=== PATIENT | female | born 1990 | race Caucasian/White ===

== ENCOUNTER 2016-05-23 18:09 | Emergency (ER) | payer OTHER ==
[~2016-05-23] VITALS: Ht 180.3 cm; Wt 143.6 kg
[2016-05-23 18:11] VITALS: BP 140/81; PULSE 89; RESP 17; TEMP 98.5; O2SAT 97
[2016-05-23] MEDS ORDERED: METF1000 PO (18:29)
[2016-05-23] MEDS ORDERED: ALBUAER3 INH (18:29)
[2016-05-23] MEDS ORDERED: LIDOCAINE VISCOUS 2% SOLN 15 ML UDC PO ONE (18:30)
[2016-05-23] MEDS ORDERED: ALUMINUM/MAGNESIUM/SIMETH 30 ML CUP PO ONE (18:30)
--- NOTE | 2016-05-23 18:32 | PD ---
HPI Chief Complaint: Abdominal Pain Time Seen by Provider: 18:25 Travel History International Travel<30 days: No Contact w/Intl Traveler<30days: No Traveled to known affect area: No History of Present Illness HPI The patient was seen and examined in the presence of the nurse. This patient complains of some epigastric area burning and irritation. She is not having any chest pain. She's had this before but it resolved on its own and she never had it evaluated. Duration is 6 hours. No vomiting or diarrhea or fever. No lower quadrant abdominal pains. No abdominal surgeries. Symptoms severity is mild. No alleviating factors PFSH Past Medical History ?: Not Social History Alcohol Use: No Tobacco Use: No Substance Use: No Allergies-Medications (Allergen,Severity, Reaction): Coded Allergies: No Known Allergies (Unverified , 05/23/16) Reported Meds & Prescriptions Reported Meds & Active Scripts Active Reported Metformin (Metformin HCl) 1,000 Mg Tab 1,000 Mg PO DAILY With a meal Proair Hfa 8.5 GM Inh (Albuterol Sulfate) 90 Mcg/Act Aer 2 Puff INH Q6H PRN 108 mcg/actuation Review of Systems General / Constitutional: No: Fever Eyes: No: Visual changes HENT: No: Headaches Cardiovascular: No: Chest Pain or Discomfort Respiratory: No: Shortness of Breath Gastrointestinal: Positive: Abdominal Pain Genitourinary: No: Dysuria Musculoskeletal: No: Pain Skin: No Rash Neurologic: No: Weakness Psychiatric: No: Depression Endocrine: No: Polydipsia Hematologic/Lymphatic: No: Easy Bruising Physical Exam Narrative GASTROINTESTINAL: Abdomen soft, non-tender, nondistended. Positive bowel sounds. No hepato-splenomegaly, or palpable masses. No guarding. SKIN: Inspection shows no rash or ulcers. Palpation shows no induration or nodules. NECK: Symmetrical appearance, midline trachea. No mass or crepitus. Thyroid without enlargement, tenderness, or mass. Data Data Last Documented VS Vital Signs Date Time Temp Pulse Resp B/P Pulse Ox O2 Delivery O2 Flow Rate FiO2 05/23/16 18:11 98.5 89 17 140/81 97 Orders Lidocaine 2% Viscous (Xylocaine 2% Visco (05/23/16 18:30) Al-Mag Hy-Si 40-40-4 Mg/Ml Liq (Mag-Al P (05/23/16 18:30) [facility] Medical Decision Making Medical Screen Exam Complete: Yes Emergency Medical Condition: Yes Medical Record Reviewed: Yes Differential Diagnosis Peptic ulcer disease, dyspepsia, esophagitis Narrative Course I have reviewed the patient's electronic medical record. I gave her a trial of Maalox/lidocaine. Abdomen is soft and benign and nontender On reassessment she feels improved. She has been taking a lot of anti-inflammatories for her chronic back pain She should avoid that as well as alcohol and greasy fried things Will take daily Prilosec for 2 weeks and follow-up with primary care or GI Diagnosis Primary Impression: Dyspepsia Additional Instructions: Take Prilosec daily for 2 weeks, it is [id number] Avoid anti-inflammatories The patient was advised to follow up with their physician and return if they worsen. Med/Other Pt SpecificInfo: Other Disposition: 01 DISCHARGE HOME Condition: Stable Karthik Machado MD May 23, 2016 18:32
== END 2016-05-23 19:30 | disposition home or self-care (01) ==
LOC: PHED 18:09
DX: R10.13 Epigastric pain (principal)
CPT/HCPCS: 99283